=== PATIENT | female | born 1980 | race Caucasian/White ===

== ENCOUNTER 2023-07-02 07:06 | Outpatient (OUT) | payer OTHER, SELFPAY ==
[2023-07-02 07:46] LABS: Basophils Absolute Auto 0.1 10^3/uL (0.0-0.1); Basophils Percent Auto 1.2 % (0.2-2.0); Eosinophils Absolute Auto 0.4 10^3/uL (0.0-0.7); Eosinophils Percent Auto 6.7 % (0.9-7.0); Hematocrit 42.1 % (36.0-48.0); Hemoglobin 13.8 g/dL (12.0-16.0); Immature Granulocytes Abs Auto 0.01 10^3/uL (0.00-0.03); Immature Granulocytes Pct Auto 0.2 % (0.0-0.5); Lymphocytes Absolute Auto 2.9 10^3/uL (1.2-3.8); Lymphocytes Percent Auto 45.6 % (20.5-60.0); Mean Corpuscular HGB Conc 32.8 g/dL (29.9-35.2); Mean Corpuscular Hemoglobin 29.7 pg (26.7-34.0); Mean Corpuscular Volume 90.5 fL (81.0-99.0); Mean Platelet Volume 10.2 fL (9.5-13.5); Monocytes Absolute Auto 0.8 10^3/uL (0.3-0.8); Monocytes Percent Auto 11.9 % (1.7-12.0); Neutrophils Absolute Auto 2.2 10^3/uL (1.4-6.5); Neutrophils Percent Auto 34.4 % (43.0-75.0); Platelet Count 228 10^3/uL (150-450); Red Blood Count 4.65 10^6/uL (4.20-5.40); Red Cell Distribution Width 13.7 % (11.0-15.0); White Blood Count 6.4 10^3/uL (4.0-11.0)
[2023-07-02 08:23] LABS: Alanine Aminotransferase 26 U/L (14-59); Albumin Level 3.4 g/dL (3.4-5.0); Alkaline Phosphatase 49 U/L (46-116); Anion Gap 13.3; Aspartate Amino Transferase 21 U/L (15-37); BUN Creatinine Ratio 16.1; Bilirubin Total 0.5 mg/dL (0.2-1.0); Calcium 9.2 mg/dL (8.5-10.1); Carbon Dioxide 25.9 mmol/L (21.0-32.0); Chloride 104 mmol/L (98-107); Cholesterol 182 mg/dL (<=200); Estimated GFR (African America >60 (>=60); Estimated GFR (Non-African Ame >60 (>=60); Globulin 3.4 g/dL; Glucose 98 mg/dL (74-106); Potassium 4.2 mmol/L (3.5-5.1); Sodium 139 mmol/L (136-145); Total Protein 6.8 g/dL (6.4-8.2); Triglycerides 74 mg/dL (<=150); VLDL CHOLESTEROL 14.8 mg/dL
[2023-07-02 08:24] LABS: Chol HDL Ratio 3.4; HDL Cholesterol 54 mg/dL (40-60); LDL Cholesterol Calculated 113.2 mg/dL
== END 2023-07-02 07:07 | disposition home or self-care (01) ==
LOC: LAB 07:08
PROVIDERS: PCP Family Medicine; Visit Provider Family Medicine
DX: Z00.00 Encounter for general adult medical examination without abnormal findings (principal)
CPT/HCPCS: 36415; 80053; 80061; 84443; 85025

== ENCOUNTER 2024-09-08 09:26 | Outpatient (OUT) | payer OTHER, SELFPAY ==
--- OUTSIDE RECORDS SUMMARY | 2024-09-08 09:37 | XMS_ITS | CCD ---
Author Organization [facility] Care Team Providers Care [employer] Name Role Phone PATRIZIA DARLING Attending Unavailable PATIRZIA DARLING Consulting Unavailable PATRIZIA DARLING Primary Care Unavailable PATRIZIA DARLING Admitting Unavailable PATRIZIA DARLING Attending Unavailable PATRIZIA DARLING Consulting Unavailable PATRIZIA DARLING Primary Care Unavailable PATRIZIA DARLING Admitting Unavailable PATRIZIA DARLING Consulting Unavailable PATRIZIA DARLING Admitting Unavailable PATRIZIA DARLING Attending Unavailable Patrizia Darling Unavailable Heather Waterman Unavailable Patrizia Darling Primary Care Unavailable Heather Waterman Attending Unavailable Heather Waterman Admitting Unavailable Patrizia Darling MD Primary Care Provider [phone] LEROY YANG Attending Unavailable SUMAN HAJI Referring Unavailable ALIVIA BAUER Attending Unavailable Allergies Allergy Classification Reported Allergen(s) Allergy Type Date of Onset Reaction(s) Facility (2 sources) patient allergy list reviewed by nurse or physicia Propensity to adverse reactions 4 Comment:Done [employer] Other Medications Current Medications Medication Drug Class(es) Dates Sig (Normalized) Sig (Original) Multiple Vitamin (multivitamin) tablet (2 sources) take 1 tablet by vandana th once daily Multiple Vitamin (multivitamin) tablet Take 1 tablet by mouth Daily Active Problems Active Problems Problem Classification Problem Date Documented Da te Episodic/Chronic Other circulatory disease (2 sources) Elevated blood-pressure reading without diagnosis of hypertension; Translations: [Elevated blood-pressure reading, without diagnosis of hypertension] Episodic Other connective tissue disease (1 source) Pain in right foot Episodic Other connective tissue disease (3 sources) Ganglion of wrist; Translations: [Ganglion, left wrist] 07-19-2023 Episodic Other connective tissue disease (2 sources) Ganglion, left wrist; Translations: [Ganglion of joint] 07-19-2023 Episodic Other non-traumatic joint disorders (1 source) Pain in right ankle and joints of right foot Episodic Other nutritional; endocrine; and metabolic disorders (2 sources) Obese class II; Translations: [Body mass index (BMI) 39.0-39.9, adult] Chronic Other nutritional; endocrine; and metabolic disorders (2 sources) Body mass index 40+ - severely obese; Translations: [Body mass index (BMI) 40.0-44.9, adult] 07-03-2024 Chronic Other screening for suspected conditions (not mental disorders or infectious disease) (11 sources) Other specified abnormal findings of blood chemistry; Translations: [Blood chemistry abnormal] Onset: 12-16-2021 Episodic Other skin disorders (2 sources) Skin tag; Translations: [Other hypertrophic disorders of the skin] 07-19-2023 Episodic Other skin disorders (1 source) Other hypertrophic disorders of the skin; Translations: [Unspecified hypertrophic and atrophic conditions of skin] 07-19-2023 Episodic Other upper respiratory disease (2 sources) Allergic rhinitis; Translations: [Allergic rhinitis, unspecified] Onset: 04-03-2013 Chronic Residual codes; unclassified (5 sources) Family history of diabetes mellitus; Translations: [Family history of diabetes mellitus] Onset: 04-03-2013 Episodic Residual codes; unclassified (3 sources) Family history of stroke; Translations: [Family history of stroke] Episodic Sprains and strains (1 source) Sprain of unspecified ligament of right ankle, initial encounter Episodic Unclassified (1 source) Pain in right ankle and joints of right foot; Translations: [Pain in right ankle and joints of right foot] Onset: 09-14-2022 Past or Other Problems Problem Classification Problem Date Documented Da te Episodic/Chronic Other connective tissue disease (2 sources) Ganglion of joint; Translations: [Ganglion of joint] Onset: 04-03-2013 Episodic Viral infection (1 source) COVID-19 Results Test Name Value Interpretation Reference Range Facility BI MAMMOGRAM SCREENING TOMOS YNTHESIS BILATERALon 07-04-2024 BI MAMMOGRAM SCREENING TOMOSYNTHESIS BILATERAL This is a summary report. The complete report is available in the patient's medical record. If you cannot access the medical record, please contact the sending organization for a detailed fax or copy. Examination: BI MAMMOGRAM SCREENING TOMOSYNTHESIS BILATERAL Clinical History: screen Technique: Screening digital mammography study of both breasts was performed with 2-D and 3-D tomosynthesis imaging. Study was compared to the prior exam dated 07/02/2023. Findings: There is no evidence of interval dominant spiculated mass, grouped microcalcifications , or skin thickening which would be suggestive of malignancy. A few small benign-appearing asymmetric densities are noted on the left laterally, similar to the prior study. IMPRESSION: Impression: No specific evidence of malignancy seen in either breast. BIRADS 2 - Benign Findings DENSITY: The breasts are almost entirely fatty. FOLLOW-UP: Routine Screening Mammogram ELECTRONICALLY SIGNED BY: Tang Iglesias M.D. Normal Not Available Comment on above: Order Comment: U/S a nd spot compression if indicated Basophils Auto (Bld) [#/Vol] on 07-02-2023 Basophils (Bld) [#/Vol] 0.1 10 3/uL 0.0-0.1 [facility] Basophils/100 WBC Auto (Bld) on 07-02-2023 Basophils/100 WBC (Bld) 1.2 % 0.2-2.0 [facility] Cholesterol in LDL Calc [Mas s/Vol]on 07-02-2023 Cholesterol in LDL [Mass/Vol] 113.2 mg/dL [facility] Comment on above: <100 mg/dl [id number] 0-129 mg/dl NEAR OR ABOVE [id number] mg/dl BORDERLINE [id number] mg/dl HIGH>190 mg/dl VERY HIGH Cholesterol in VLDL Calc [Ma ss/Vol]on 07-02-2023 Cholesterol in VLDL [Mass/Vol] 14.8 mg/dL [facility] Eosinophils/100 WBC Auto (Bl d)on 07-02-2023 Eosinophils/100 WBC (Bld) 6.7 % 0.9-7.0 [facility] Erythrocyte distribution wid th Auto (RBC) [Ratio]on 07-02-2023 Erythrocyte distribution width (RBC) [Ratio] 13.7 % 11.0-15.0 [facility] Estimated glomerular filtrat ion rate (GFR) non- Americanon 07-02-2023 GFR/1.73 sq M.predicted among non-blacks MDRD (S/P/Bld) [Vol rate/Area] mL/min/{1.73_m2} >=60 [facility] Globulin Calc (S) [Mass/Vol] on 07-02-2023 Globulin (S) [Mass/Vol] 3.4 g/dL [facility] Hematocrit Auto (Bld) [Volum e fraction]on 07-02-2023 Hematocrit (Bld) [Volume fraction] 42.1 % 36.0-48.0 [facility] Hemoglobin [Mass/volume] in Bloodon 07-02-2023 Hemoglobin (Bld) [Mass/Vol] 13.8 g/dL 12.0-16.0 [facility] Laboratory - Chemistry and C hemistry - challengeon 07-02-2023 Albumin [Mass/Vol] 3.4 g/dL 3.4-5.0 [facility] ALP [Catalytic activity/Vol] 49 U/L 46-116 [facility] ALT [Catalytic activity/Vol] 26 U/L 14-59 [facility] AST [Catalytic activity/Vol] 21 U/L 15-37 [facility] Bilirubin [Mass/Vol] 0.5 mg/dL 0.2-1.0 [facility] Calcium [Mass/Vol] 9.2 mg/dL 8.5-10.1 [facility] Chloride [Moles/Vol] 104 mmol/L 98-107 [facility] Cholesterol [Mass/Vol] 182 mg/dL <=200 [facility] Cholesterol in HDL [Mass/Vol] 54 mg/dL 40-60 [facility] Comment on above: > or =60 mg/dl - LOW CARDIOVASCULAR RISK<40 mg/dl - HIGH CARDIOVASCULAR RISK CO2 [Moles/Vol] 25.9 mmol/L 21.0-32.0 [facility] Creatinine [Mass/Vol] 0.87 mg/dL 0.55-1.02 [facility] GFR/1.73 sq M.predicted MDRD (S/P/Bld) [Vol rate/Area] mL/min/{1.73_m2} >=60 [facility] Glucose [Mass/Vol] 98 mg/dL 74-106 [facility] Potassium [Moles/Vol] 4.2 mmol/L 3.5-5.1 [facility] Protein [Mass/Vol] 6.8 g/dL 6.4-8.2 [facility] Sodium [Moles/Vol] 139 mmol/L 136-145 [facility] Triglyceride [Mass/Vol] 74 mg/dL <=150 [facility] TSH Qn 2.360 m[IU]/L 0.358-3.740 [facility] Urea nitrogen [Mass/Vol] 14.0 mg/dL 7.0-18.0 [facility] Urea nitrogen/Creatinine [Mass ratio] 16.1 mg/mg [facility] Laboratory - Hematology and Cell countson 07-02-2023 Immature granulocytes/100 WBC (Bld) 0.2 % 0.0-0.5 [facility] Leukocytes [#/volume] correc geraldine for nucleated erythrocytes in Blood by Automated counon 07-02-2023 WBC corrected for nucl RBC Auto (Bld) [#/Vol] 6.4 10 3/uL 4.0-11.0 [facility] Lymphocytes Auto (Bld) [#/Vo l]on 07-02-2023 Lymphocytes (Bld) [#/Vol] 2.9 10 3/uL 1.2-3.8 [facility] Lymphocytes/100 WBC Auto (Bl d)on 07-02-2023 Lymphocytes/100 WBC (Bld) 45.6 % 20.5-60.0 [facility] MCH Auto (RBC) [Entitic mass ]on 07-02-2023 MCH (RBC) [Entitic mass] 29.7 pg 26.7-34.0 [facility] MCHC Auto (RBC) [Mass/Vol]on 07-02-2023 MCHC (RBC) [Mass/Vol] 32.8 g/dL 29.9-35.2 [facility] MCV Auto (RBC) [Entitic vol] on 07-02-2023 MCV (RBC) [Entitic vol] 90.5 fL 81.0-99.0 [facility] Monocytes Auto (Bld) [#/Vol] on 07-02-2023 Monocytes (Bld) [#/Vol] 0.8 10 3/uL 0.3-0.8 [facility] Monocytes/100 WBC Auto (Bld) on 07-02-2023 Monocytes/100 WBC (Bld) 11.9 % 1.7-12.0 [facility] Neutrophils Auto (Bld) [#/Vo l]on 07-02-2023 Neutrophils (Bld) [#/Vol] 2.2 10 3/uL 1.4-6.5 [facility] Neutrophils/100 WBC Auto (Bl d)on 07-02-2023 Neutrophils/100 WBC (Bld) 34.4 % 43.0-75.0 [facility] No Panel Informationon 07-01 Eosinophils # (Auto) 0.4 10 3/uL 0.0-0.7 [facility] Immature Granulocyte # (Auto) 0.01 10 3/uL 0.00-0.03 [facility] Platelet mean volume Auto (B ld) [Entitic vol]on 07-02-2023 Platelet mean volume (Bld) [Entitic vol] 10.2 fL 9.5-13.5 [facility] Platelets Auto (Bld) [#/Vol] on 07-02-2023 Platelets (Bld) [#/Vol] 228 10 3/uL 150-450 [facility] RBC Auto (Bld) [#/Vol]on RBC (Bld) [#/Vol] 4.65 10 6/uL 4.20-5.40 [facility] Serum or plasma albumin/glob ulin mass ratioon 07-02-2023 Albumin/Globulin [Mass ratio] 1.0 {ratio} [facility] Serum or plasma anion gap de terminationon 07-02-2023 Anion gap [Moles/Vol] 13.3 mmol/L [facility] Serum or plasma total choles terol/high density lipoprotein (HDL) cholesterol mass anushka 07-02-2023 Cholesterol.total/Ch olesterol in HDL [Mass ratio] 3.4 {ratio} [facility] Comment on above: 3.3 - 4.4 LOW RISK4. 4 - 7.1 AVERAGE RISK7.1 - 11.0 MODERATE RISK>11.0 HIGH RISK XR ankle RT min 3V*on 2022 XR ankle RT min 3V* [facility] [employer] Other XR ankle RT min 3V* [facility] Main [facility] [employer] Other XR ankle RT min 3V* [address] [place] [address] [employer] Other XR ankle RT min 3V* [place] [address] [employer] Other XR ankle RT min 3V* XRay Report Nort [facility] Other XR ankle RT min 3V* Signed [employer] Other XR ankle RT min 3V* Patient: Sheila Mckeon MR#: [id number] [employer] Other XR ankle RT min 3V* 7736 [employer] Other XR ankle RT min 3V* : 1980 Acct:[id number] [employer] Other XR ankle RT min 3V* Age/Sex: 42 / F ADM Date: 09/14/22 [employer] Other XR ankle RT min 3V* Loc: XDUCLY Room: Type: REG CLI [employer] Other XR ankle RT min 3V* Attending Dr: Heather Waterman [facility] [employer] Other XR ankle RT min 3V* Copies to: Heather Waterman [facility] [employer] Other XR ankle RT min 3V* Ordering Provider: Heather Waterman APRN [employer] Other XR ankle RT min 3V* Date of Service: 09/14/22 [employer] Other XR ankle RT min 3V* XR/XR foot RT min 3V*: Acute right ankle pain [employer] Other XR ankle RT min 3V* ([id number]) XR/XR ankle RT min 3V*: Acute right ankle pain [employer] Other XR ankle RT min 3V* 3 views right foot plain film [employer] Other XR ankle RT min 3V* COMPARISON:None [employer] Other XR ankle RT min 3V* HISTORY: Right foot and ankle injury 3 days ago. Continued pain [employer] Other XR ankle RT min 3V* ACUTE FINDINGS: None [employer] Other XR ankle RT min 3V* DEGENERATIVE CHANGE: Unremarkable [employer] Other XR ankle RT min 3V* SOFT TISSUE FINDINGS: Unremarkable [employer] Other XR ankle RT min 3V* JOINT EFFUSION: None [employer] Other XR ankle RT min 3V* POSTOP CHANGES: None [employer] Other XR ankle RT min 3V* BONE MINERALIZATION: Adequate [employer] Other XR ankle RT min 3V* XR/XR foot RT min 3V* [employer] Other XR ankle RT min 3V* IMPRESSION: No acute findings. [employer] Other XR ankle RT min 3V* 3 views right ankle [employer] Other XR ankle RT min 3V* Lateral soft tissue swelling. No fracture. Adequate bony alignment. [employer] Other XR ankle RT min 3V* IMPRESSION: No acute fracture. [employer] Other XR ankle RT min 3V* Impression dictated by: Vern Zavala M.D.09/14/2022 10:06 AM [employer] Other XR ankle RT min 3V* Dictation Location: [facility]--12 [employer] Other XR ankle RT min 3V* Transcribed By: COURTNEY 09/14/22 1006 [employer] Other XR ankle RT min 3V* Dictated By: Vern Zavala DO 09/14/22 1004 [employer] Other XR ankle RT min 3V* Signed By: [employer] Other XR ankle RT min 3V* 09/14/22 1006 No rt [employer] Other XR ankle RT min 3V* [facility] Main [place] [address] [place] [address] XRay Report Signed Patient: Sheila Mckeon MR#: [id number] : 1980 Acct:[id number] Age/Sex: 42 / F ADM Date: 09/14/22 Loc: XDUCLY Room: Type: [facility] Attending Dr: Heather Waterman APRN Copies to: Heather Waterman APRN Ordering Provider: Heather Waterman APRN Date of Service: 09/14/22 XR/XR foot RT min 3V*: Acute right ankle pain ([id number]) XR/XR ankle RT min 3V*: Acute right ankle pain 3 views right foot plain film COMPARISON:None HISTORY: Right foot and ankle injury 3 days ago. Continued pain ACUTE FINDINGS: None DEGENERATIVE CHANGE: Unremarkable SOFT TISSUE FINDINGS: Unremarkable JOINT EFFUSION: None POSTOP CHANGES: None BONE MINERALIZATION: Adequate XR/XR foot RT min 3V* IMPRESSION: No acute findings. 3 views right ankle Lateral soft tissue swelling. No fracture. Adequate bony alignment. IMPRESSION: No acute fracture. Impression dictated by: Vern Zavala M.D.09/14/2022 10:06 AM Dictation [facility] Transcribed By: COURTNEY 09/14/22 100 Dictated By: Vern Zavala DO 09/14/22 1004 Signed By: 09/14/22 1006 [facility] CBC AUTO DIFFon 06-13-2022 BASO # 0.1 103/ul Normal 0.0-0.1 [facility] Comment on above: Performed By: #### C BC #### [facility] [address] [place] [address] Dr. Tessie Yu Basophils/100 WBC (Bld) 1.0 % Normal 0.2-2.0 [facility] Comment on above: Performed By: #### C BC #### [facility] [address] [place] [address] Dr. Tessie Yu EO # 0.4 103/ul Normal 0.0-0.7 [facility] Comment on above: Performed By: #### C BC #### [facility] [address] [place] [address] Dr. Tessie Yu Eosinophils/100 WBC (Bld) 6.2 % Normal 0.9-7.0 [facility] Comment on above: Performed By: #### C BC #### [facility] [address] [place] [address] Dr. Tessie Yu Erythrocyte distribution width (RBC) [Ratio] 13.3 % Normal 11.0-15.0 [facility] Comment on above: Performed By: #### C BC #### [facility] [address] [place] [address] Dr. Tessie Yu Hematocrit (Bld) [Volume fraction] 43.8 % Normal 36.0-48.0 [facility] Comment on above: Performed By: #### C BC #### [facility] [address] [place] [address] Dr. Tessie Yu Hemoglobin (Bld) [Mass/Vol] 14.2 g/dL Normal 12.0-16.0 [facility] Comment on above: Performed By: #### C BC #### [facility] [address] [place] [address] Dr. Tessie Yu IG # 0.02 10e3/ul Normal 0.00-0.03 [facility] Comment on above: Performed By: #### C BC #### [facility] [address] [place] [address] Dr. Tessie Yu IG % 0.3 % Normal 0.0-0.5 [facility] Comment on above: Performed By: #### C BC #### [facility] [address] [place] [address] Dr. Tessie Yu LYMPH # 2.5 103/ul Normal 1.2-3.8 [facility] Comment on above: Performed By: #### C BC #### [facility] [address] [place] [address] Dr. Tessie Yu Lymphocytes/100 WBC (Bld) 39.6 % Normal 20.5-60.0 [facility] Comment on above: Performed By: #### C BC #### [facility] [address] [place] [address] Dr. Tessie Yu MANUAL DIFF REQ NO Normal [facility] Comment on above: Performed By: #### C BC #### [facility] [address] [place] [address] Dr. Tessie Yu MCH (RBC) [Entitic mass] 30.1 pg Normal 26.7-34.0 [facility] Comment on above: Performed By: #### C BC #### [facility] [address] [place] [address] Dr. Tessie Yu MCHC (RBC) [Mass/Vol] 32.4 g/dL Normal 29.9-35.2 [facility] Comment on above: Performed By: #### C BC #### [facility] [address] [place] [address] Dr. Tessie Yu MCV (RBC) [Entitic vol] 92.8 fL Normal 81.0-99.0 [facility] Comment on above: Performed By: #### C BC #### [facility] [address] [place] [address] Dr. Tessie Yu MONO # 0.7 103/ul Normal 0.3-0.8 [facility] Comment on above: Performed By: #### C BC #### [facility] [address] [address] [address] Tessie Yu Monocytes/100 WBC (Bld) 10.5 % Normal 1.7-12.0 [facility] Comment on above: Performed By: #### C BC #### [facility] [address] [address] [address] Tessie Yu NEUT # 2.7 103/ul Normal 1.4-6.5 [facility] Comment on above: Performed By: #### C BC #### [facility] [address] [address] [address] Tessie Yu Neutrophils/100 WBC (Bld) 42.4 % Critically low 43.0-75.0 [facility] Comment on above: Performed By: #### C BC #### [facility] [address] [place] [address] Dr. Tessie Yu Platelet mean volume (Bld) [Entitic vol] 10.8 fL Normal 9.5-13.5 [facility] Comment on above: Performed By: #### C BC #### [facility] [address] [place] [address] Dr. Tessie Yu PLT 247 103/ul Normal 150-450 [facility] Comment on above: Performed By: #### C BC #### [facility] [address] [place] [address] Dr. Tessie Yu RBC 4.72 106/ul Normal 4.20-5.40 [facility] Comment on above: Performed By: #### C BC #### [facility] [address] [place] [address] Dr. Tessie Yu WBC 6.3 103/ul Normal 4.0-11.0 [facility] Comment on above: Performed By: #### C BC #### [facility] [address] [place] [address] Dr. Tessie Yu LIPID PROFILEon 06-13-2022 CHOL-HDL RATIO NORM SEE BELOW Normal [facility] Comment on above: Result Comment: 3.3 - 4.4 LOW RISK 4.4 - 7.1 AVERAGE RISK 7.1 - 11.0 MODERATE RISK >11.0 HIGH RISK Performed By: #### C MP, TSH, LIPID #### [facility] [address] [address] [address] Tessie Yu Cholesterol [Mass/Vol] 158 mg/dL Normal <=200 [facility] Comment on above: Performed By: #### C MP, TSH, LIPID #### [facility] [address] [address] [address] Tessie Yu Cholesterol in HDL [Mass/Vol] 47 mg/dL Normal 40-60 [facility] Comment on above: Performed By: #### C MP, TSH, LIPID #### [facility] [address] [place] [address] Dr. Tessie Yu Cholesterol in LDL [Mass/Vol] 99.6 mg/dL Normal [facility] Comment on above: Performed By: #### C MP, TSH, LIPID #### [facility] [address] [place] [address] Dr. Tessie Yu Cholesterol.total/Ch olesterol in HDL [Mass ratio] 3.4 {ratio} Normal [facility] Comment on above: Performed By: #### C MP, TSH, LIPID #### [facility] [address] [place] [address] Dr. Tessie Yu HDL NORMAL > or = 60 mg/dl - LOW CARDIOVASCULAR RISK <40 mg/dl - HIGH CARDIOVASCULAR RISK Normal [facility] Comment on above: Performed By: #### C MP, TSH, LIPID #### [facility] [address] [place] [address] Dr. Tessie Yu LDL CALC NORMAL SEE BELOW Normal [facility] Comment on above: Result Comment: <100 mg/dl OPTIMAL 100 - 129 mg/dl NEAR OR ABOVE OPTIMAL 130 - 159 mg/dl BORDERLINE HIGH 160 - 189 mg/dl HIGH >190 mg/dl VERY HIGH Performed By: #### C MP, TSH, LIPID #### [facility] [address] [place] [address] Dr. Tessie Yu Triglyceride [Mass/Vol] 57 mg/dL Normal <=150 [facility] Comment on above: Performed By: #### C MP, TSH, LIPID #### [facility] [address] [address] [address] Tessie Yu VLDL CALC 11.4 mg/dL Normal [facility] Comment on above: Performed By: #### C MP, TSH, LIPID #### [facility] [address] [address] [address] Tessie Yu PROF 14(COMP METB)on 023 Albumin [Mass/Vol] 3.8 g/dL Normal 3.4-5.0 [facility] Comment on above: Performed By: #### C MP, TSH, LIPID #### [facility] [address] [place] [address] Dr. Tessie Yu Albumin/Globulin [Mass ratio] 1.1 {ratio} Normal [facility] Comment on above: Performed By: #### C MP, TSH, LIPID #### [facility] [address] [place] [address] Dr. Tessie Yu ALP [Catalytic activity/Vol] 47 U/L Normal 46-116 [facility] Comment on above: Performed By: #### C MP, TSH, LIPID #### [facility] [address] [place] [address] Dr. Tessie Yu ALT [Catalytic activity/Vol] 28 U/L Normal 14-59 [facility] Comment on above: Performed By: #### C MP, TSH, LIPID #### [facility] [address] [address] [address] Tessie Yu Anion gap [Moles/Vol] 12.2 mmol/L Normal [facility] Comment on above: Performed By: #### C MP, TSH, LIPID #### [facility] [address] [place] [address] Dr. Tessie Yu AST [Catalytic activity/Vol] 22 U/L Normal 15-37 [facility] Comment on above: Performed By: #### C MP, TSH, LIPID #### [facility] [address] [address] [address] Tessie Yu Bilirubin [Mass/Vol] 0.3 mg/dL Normal 0.2-1.0 [facility] Comment on above: Performed By: #### C MP, TSH, LIPID #### [facility] [address] [place] [address] Dr. Tessie Yu Calcium [Mass/Vol] 9.0 mg/dL Normal 8.5-10.1 [facility] Comment on above: Performed By: #### C MP, TSH, LIPID #### [facility] [address] [place] [address] Dr. Tessie Yu Chloride [Moles/Vol] 106 mmol/L Normal 98-107 [facility] Comment on above: Performed By: #### C MP, TSH, LIPID #### [facility] [address] [place] [address] Dr. Tessie Yu CO2 [Moles/Vol] 26.3 mmol/L Normal 21.0-32.0 [facility] Comment on above: Performed By: #### C MP, TSH, LIPID #### [facility] [address] [place] [address] Dr. Tessie Yu Creatinine [Mass/Vol] 0.97 mg/dL Normal 0.55-1.02 [facility] Comment on above: Performed By: #### C MP, TSH, LIPID #### [facility] [address] [place] [address] Dr. Tessie Yu EGFR-AF MACEDONIAN >60 Normal >=60 [facility] Comment on above: Performed By: #### C MP, TSH, LIPID #### [facility] [address] [place] [address] Dr. Tessie Yu EGFR-NON AF MACEDONIAN >60 Normal >=60 [facility] Comment on above: Performed By: #### C MP, TSH, LIPID #### [facility] [address] [place] [address] Dr. Tessie Yu Globulin (S) [Mass/Vol] 3.5 g/dL [facility] Comment on above: Performed By: #### C MP, TSH, LIPID #### [facility] [address] [place] [address] Dr. Tessie Yu Glucose [Mass/Vol] 96 mg/dL Normal 74-106 [facility] Comment on above: Performed By: #### C MP, TSH, LIPID #### [facility] [address] [place] [address] Dr. Tessie Yu Potassium [Moles/Vol] 4.5 mmol/L Normal 3.5-5.1 [facility] Comment on above: Performed By: #### C MP, TSH, LIPID #### [facility] [address] [place] [address] Dr. Tessie Yu Protein [Mass/Vol] 7.3 g/dL Normal 6.4-8.2 [facility] Comment on above: Performed By: #### C MP, TSH, LIPID #### [facility] [address] [place] [address] Dr. Tessie Yu Sodium [Moles/Vol] 140 mmol/L Normal 136-145 [facility] Comment on above: Performed By: #### C MP, TSH, LIPID #### [facility] [address] [place] [address] Dr. Tessie Yu Urea nitrogen [Mass/Vol] 16.0 mg/dL Normal 7.0-18.0 [facility] Comment on above: Performed By: #### C MP, TSH, LIPID #### [facility] [address] [place] [address] Dr. Tessie Yu Urea nitrogen/Creatinine [Mass ratio] 16.5 mg/mg [facility] Comment on above: Performed By: #### C MP, TSH, LIPID #### [facility] [address] [place] [address] Dr. Tessie Yu TSHon 06-13-2022 TSH 3.751 uIU/mL Critically high 0.358-3.740 [facility] Comment on above: Performed By: #### C MP, TSH, LIPID #### [facility] [address] [place] [address] Dr. Tessie Yu FREE T4on 12-16-2021 Free T4 [Mass/Vol] 0.92 ng/dL Normal 0.76-1.46 [facility] Comment on above: Performed By: #### F T4 #### [facility] [address] [place] [address] Dr. Tessie Yu TSHon 12-16-2021 TSH 2.889 uIU/mL Normal 0.358-3.740 [facility] Comment on above: Performed By: #### T SH #### [facility] [address] [place] [address] Dr. Tessie Yu [facility] CBC AUTO DIFFon 10-02-2021 BASO # 0.1 103/ul Normal 0.0-0.1 [facility] Comment on above: Performed By: #### H FPFCBC #### [facility] [address] [place] [address] Dr. Tessie Yu Basophils/100 WBC (Bld) 1.0 % Normal 0.2-2.0 [facility] Comment on above: Performed By: #### H FPFCBC #### [facility] [address] [place] [address] Dr. Tessie Yu EO # 0.4 103/ul Normal 0.0-0.7 [facility] Comment on above: Performed By: #### H FPFCBC #### [facility] [address] [place] [address] Dr. Tessie Yu Eosinophils/100 WBC (Bld) 5.9 % Normal 0.9-7.0 [facility] Comment on above: Performed By: #### H FPFCBC #### [facility] [address] [place] [address] Dr. Tessie Yu Erythrocyte distribution width (RBC) [Ratio] 13.5 % Normal 11.0-15.0 [facility] Comment on above: Performed By: #### H FPFCBC #### [facility] [address] [place] [address] Dr. Tessie Yu Hematocrit (Bld) [Volume fraction] 44.5 % Normal 36.0-48.0 [facility] Comment on above: Performed By: #### H FPFCBC #### [facility] [address] [place] [address] Dr. Tessie Yu Hemoglobin (Bld) [Mass/Vol] 14.5 g/dL Normal 12.0-16.0 [facility] Comment on above: Performed By: #### H FPFCBC #### [facility] [address] [place] [address] Dr. Tessie Yu IG # 0.02 10e3/ul Normal 0.00-0.03 [facility] Comment on above: Performed By: #### H FPFCBC #### [facility] [address] [place] [address] Dr. Tessie Yu IG % 0.3 % Normal 0.0-0.5 [facility] Comment on above: Performed By: #### H FPFCBC #### [facility] [address] [place] [address] Dr. Tessie Yu LYMPH # 2.4 103/ul Normal 1.2-3.8 [facility] Comment on above: Performed By: #### H FPFCBC #### [facility] [address] [place] [address] Dr. Tessie Yu Lymphocytes/100 WBC (Bld) 40.0 % Normal 20.5-60.0 [facility] Comment on above: Performed By: #### H FPFCBC #### [facility] [address] [place] [address] Dr. Tessie Yu MCH (RBC) [Entitic mass] 29.7 pg Normal 26.7-34.0 [facility] Comment on above: Performed By: #### H FPFCBC #### [facility] [address] [place] [address] Dr. Tessie Yu MCHC (RBC) [Mass/Vol] 32.6 g/dL Normal 29.9-35.2 [facility] Comment on above: Performed By: #### H FPFCBC #### [facility] [address] [place] [address] Dr. Tessie Yu MCV (RBC) [Entitic vol] 91.2 fL Normal 81.0-99.0 [facility] Comment on above: Performed By: #### H FPFCBC #### [facility] [address] [address] [address] Tessie Yu MONO # 0.7 103/ul Normal 0.3-0.8 [facility] Comment on above: Performed By: #### H FPFCBC #### [facility] [address] [place] [address] Dr. Tessie Yu Monocytes/100 WBC (Bld) 11.5 % Normal 1.7-12.0 [facility] Comment on above: Performed By: #### H FPFCBC #### [facility] [address] [place] [address] Dr. Tessie Yu NEUT # 2.5 103/ul Normal 1.4-6.5 [facility] Comment on above: Performed By: #### H FPFCBC #### [facility] [address] [place] [address] Dr. Tessie Yu Neutrophils/100 WBC (Bld) 41.3 % Critically low 43.0-75.0 [facility] Comment on above: Performed By: #### H FPFCBC #### [facility] [address] [place] [address] Dr. Tessie Yu Platelet mean volume (Bld) [Entitic vol] 11.0 fL Normal 9.5-13.5 [facility] Comment on above: Performed By: #### H FPFCBC #### [facility] [address] [place] [address] Dr. Tessie Yu PLT 263 103/ul Normal 150-450 [facility] Comment on above: Performed By: #### H FPFCBC #### [facility] [address] [place] [address] Dr. Tessie Yu RBC 4.88 106/ul Normal 4.20-5.40 [facility] Comment on above: Performed By: #### H FPFCBC #### [facility] [address] [place] [address] Dr. Tessie Yu WBC 6.1 103/ul Normal 4.0-11.0 [facility] Comment on above: Performed By: #### H FPFCBC #### [facility] [address] [place] [address] Dr. Tessie Yu [employer] PROFILEon 022 Albumin [Mass/Vol] 4.1 g/dL Normal 3.4-5.0 [facility] Comment on above: Performed By: #### H FPF #### [facility] [address] [place] [address] Dr. Tessie Yu Albumin/Globulin [Mass ratio] 1.2 {ratio} [facility] Comment on above: Performed By: #### H FPF #### [facility] [address] [place] [address] Dr. Tessie Yu ALP [Catalytic activity/Vol] 47 U/L Normal 46-116 [facility] Comment on above: Performed By: #### H FPF #### [facility] [address] [place] [address] Dr. Tessie Yu ALT [Catalytic activity/Vol] 29 U/L Normal 14-59 [facility] Comment on above: Performed By: #### H FPF #### [facility] [address] [place] [address] Dr. Tessie Yu AST [Catalytic activity/Vol] 24 U/L Normal 15-37 [facility] Comment on above: Performed By: #### H FPF #### [facility] [address] [place] [address] Dr. Tessie Yu Bilirubin [Mass/Vol] 0.8 mg/dL Normal 0.2-1.0 [facility] Comment on above: Performed By: #### H FPF #### [facility] [address] [place] [address] Dr. Tessie Yu Calcium [Mass/Vol] 9.0 mg/dL Normal 8.5-10.1 [facility] Comment on above: Performed By: #### H FPF #### [facility] [address] [place] [address] Dr. Tessie Yu Chloride [Moles/Vol] 102 mmol/L Normal 98-107 [facility] Comment on above: Performed By: #### H FPF #### [facility] [address] [address] [address] Tessie Yu CHOL-HDL RATIO NORM SEE BELOW Normal [facility] Comment on above: Result Comment: 3.3 - 4.4 LOW RISK 4.4 - 7.1 AVERAGE RISK 7.1 - 11.0 MODERATE RISK >11.0 HIGH RISK Performed By: #### H FPF #### [facility] [address] [address] [address] Tessie Yu Cholesterol [Mass/Vol] 192 mg/dL Normal <=200 [facility] Comment on above: Performed By: #### H FPF #### [facility] [address] [address] [address] Tessie Yu Cholesterol in HDL [Mass/Vol] 47 mg/dL Normal 40-60 [facility] Comment on above: Performed By: #### H FPF #### [facility] [address] [address] [address] Tessie Yu Cholesterol in LDL [Mass/Vol] 127.6 mg/dL [facility] Comment on above: Performed By: #### H FPF #### [facility] [address] [address] [address] Tessie Yu Cholesterol.total/Ch olesterol in HDL [Mass ratio] 4.1 {ratio} [facility] Comment on above: Performed By: #### H FPF #### [facility] [address] [address] [address] Tessie Yu CO2 [Moles/Vol] 23.5 mmol/L Normal 21.0-32.0 [facility] Comment on above: Performed By: #### H FPF #### [facility] [address] [address] [address] Tessie Yu Creatinine [Mass/Vol] 0.86 mg/dL Normal 0.55-1.02 [facility] Comment on above: Performed By: #### H FPF #### [facility] [address] [address] [address] Tessie Yu Globulin (S) [Mass/Vol] 3.3 g/dL [facility] Comment on above: Performed By: #### H FPF #### [facility] [address] [address] [address] Tesise Yu Glucose [Mass/Vol] 79 mg/dL Normal 74-106 [facility] Comment on above: Performed By: #### H FPF #### [facility] [address] [address] [address] Tessie Yu HDL NORMAL > or = 60 mg/dl - LOW CARDIOVASCULAR RISK <40 mg/dl - HIGH CARDIOVASCULAR RISK [facility] Comment on above: Performed By: #### H FPF #### [facility] [address] [address] [address] Tessie Yu LDL CALC NORMAL SEE BELOW Normal [facility] Comment on above: Result Comment: <100 mg/dl OPTIMAL 100 - 129 mg/dl NEAR OR ABOVE OPTIMAL 130 - 159 mg/dl BORDERLINE HIGH 160 - 189 mg/dl HIGH >190 mg/dl VERY HIGH Performed By: #### H FPF #### [facility] [address] [address] [address] Tessie Yu Potassium [Moles/Vol] 4.2 mmol/L Normal 3.5-5.1 [facility] Comment on above: Performed By: #### H FPF #### [facility] [address] [place] [address] Dr. Tessie Yu Protein [Mass/Vol] 7.4 g/dL Normal 6.4-8.2 [facility] Comment on above: Performed By: #### H FPF #### [facility] [address] [place] [address] Dr. Tessie Yu Sodium [Moles/Vol] 137 mmol/L Normal 136-145 [facility] Comment on above: Performed By: #### H FPF #### [facility] [address] [address] [address] Tessie Yu Triglyceride [Mass/Vol] 87 mg/dL Normal <=150 [facility] Comment on above: Performed By: #### H FPF #### [facility] [address] [place] [address] Dr. Tessie Yu TSH 4.033 uIU/mL Critically high 0.358-3.740 [facility] Comment on above: Performed By: #### H FPF #### [facility] [address] [address] [address] Tessie Yu Urea nitrogen [Mass/Vol] 10.0 mg/dL Normal 7.0-18.0 [facility] Comment on above: Performed By: #### H FPF #### [facility] [address] [address] [address] Tessie Yu Urea nitrogen/Creatinine [Mass ratio] 11.6 mg/mg [facility] Comment on above: Performed By: #### H FPF #### [facility] [address] [address] [address] Tessie Yu VLDL CALC 17.4 mg/dL [facility] Comment on above: Performed By: #### H FPF #### [facility] [address] [place] [address] Dr. Tessie Yu Vital Signs Date Time Vital Sign Value Performing Clinician Facility 07-03-2024 14:29-0400 Body height 160 cm Leroy Visci DO Work Phone: [facility] 07-03-2024 14:29-0400 Body mass index (BMI) [Ratio] 41.81 kg/m2 Leroy Visci DO Work Phone: [facility] 07-03-2024 14:29-0400 Body weight 107.05 kg Leroy Visci DO Work Phone: [facility] 07-03-2024 14:29-0400 Diastolic blood pressure 84 mm[Hg] Leroy Visci DO Work Phone: [facility] 07-03-2024 14:29-0400 Systolic blood pressure 122 mm[Hg] Leroy Visci DO Work Phone: [facility] 04-28-2024 09:00-0400 Body height 160.02 cm [facility] 04-28-2024 09:00-0400 Body mass index (BMI) [Ratio] 40.1 kg/m2 [facility] 04-28-2024 09:00-0400 Body weight 102.96 kg [facility] 04-28-2024 09:00-0400 Diastolic blood pressure 81 mm[Hg] [facility] 04-28-2024 09:00-0400 Heart rate 81 /min [facility] 04-28-2024 09:00-0400 Systolic blood pressure 126 mm[Hg] [facility] 07-26-2023 09:43-0400 Body height 160.02 cm [facility] 07-26-2023 09:43-0400 Body mass index (BMI) [Ratio] 40.7 kg/m2 [facility] 07-26-2023 09:43-0400 Body weight 104.32 kg [facility] 07-26-2023 09:43-0400 Diastolic blood pressure 84 mm[Hg] [facility] 07-26-2023 09:43-0400 Heart rate 91 /min [facility] 07-26-2023 09:43-0400 Systolic blood pressure 125 mm[Hg] [facility] 07-19-2023 08:54-0400 Body height 160.02 cm [facility] 07-19-2023 08:54-0400 Body mass index (BMI) [Ratio] 40.7 kg/m2 [facility] 07-19-2023 08:54-0400 Body weight 104.32 kg [facility] 07-19-2023 08:54-0400 Diastolic blood pressure 76 mm[Hg] [facility] 07-19-2023 08:54-0400 Heart rate 85 /min [facility] 07-19-2023 08:54-0400 Systolic blood pressure 110 mm[Hg] [facility] 09-14-2022 09:20-0400 Body height 160.02 cm Heather Waterman Other [facility] 09-14-2022 09:20-0400 Body mass index (BMI) [Ratio] 38.97 kg/m2 Heather Waterman Other [facility] Other 09-14-2022 09:20-0400 Body temperature 97.8 [degF] Heather Waterman Other [facility] Other 09-14-2022 09:20-0400 Body weight 99.79 kg Heather Waterman Other [facility] Other 09-14-2022 09:20-0400 Respiratory rate 18 /min Heather Waterman Other [facility] Other 09-14-2022 09:20-0400 SaO2% (BldA) [Mass fraction] 99 % Heather Cullenley Other [facility] Other 06-23-2022 16:30-0400 Body height 160.02 cm Patrizia Darling Other [facility] Other 06-23-2022 16:30-0400 Body mass index (BMI) [Ratio] 38.26 kg/m2 Patrizia Darling Other [facility] Other 06-23-2022 16:30-0400 Body weight 97.98 kg Patrizia Darling Other [facility] Other 06-23-2022 16:30-0400 Diastolic blood pressure 80 mm[Hg] Patrizia Darling Other [facility] Other 06-23-2022 16:30-0400 SaO2% (BldA) [Mass fraction] 98 % Patrizia Darling Other [facility] Other 06-23-2022 16:30-0400 Systolic blood pressure 128 mm[Hg] Patrizia Darling Other [facility] Other Encounters Encounter Date Encounter Type Care Provider Facility Start: 07-04-2024 End: 07-04-2024 ambulatory SUMAN Mary HAJI Not Available Start: 07-03-2024 End: 07-03-2024 Patient encounter status Leroy Yang DO Work Phone: [facility] Start: 07-03-2024 End: 07-03-2024 Periodic preventive med est patient 40-64yrs Leroy Yang DO Work Phone: [facility] Comment on above: Encounter for gyneco logical examination with abnormal finding (Primary Dx); Encounter for screening mammogram for malignant neoplasm of breast; BMI 40.0-44.9, adult ([facility]) Start: 07-03-2024 End: 07-03-2024 ambulatory LEROY YANG Not Available Start: 04-28-2024 End: 04-28-2024 ambulatory [facility] Work Phone: Start: 04-28-2024 End: 04-28-2024 Patient encounter procedure Replaced By [facility] Work Phone: Start: 07-26-2023 End: 07-26-2023 ambulatory [facility] Work Phone: Start: 07-26-2023 End: 07-26-2023 Patient encounter procedure Replaced By [facility] Physician [facility] Work Phone: Start: 07-21-2023 End: 07-21-2023 ambulatory ALIVIA Henderson APLING Not Available Start: 07-19-2023 End: 07-19-2023 ambulatory [facility] Work Phone: Start: 07-19-2023 End: 07-19-2023 Encounter for general adult medical examination without abnormal findings [facility] Start: 07-19-2023 End: 07-19-2023 Patient encounter procedure Replaced By [facility] Physician [facility] Work Phone: Start: 07-02-2023 Non-patient / Non-visit Replaced By [facility] Physician [facility] Work Phone: Start: 06-11-2023 Patient encounter status [facility] Start: 11-10-2022 (Televisit) Televisit Patrizia Darling [facility] Start: 11-10-2022 End: 11-10-2022 ambulatory Patrizia Darling Other [facility] Other Start: 09-14-2022 Office outpatient vi sit 15 minutes Heather Waterman [facility] Start: 09-14-2022 End: 09-14-2022 ambulatory Patrizia Darling [facility] Other Start: 06-23-2022 End: 06-23-2022 ambulatory Patrizia Darling Other [facility] Other Start: 06-23-2022 Encounter for genera l adult medical examination without abnormal findings Patrizia Darling [facility] Start: 06-23-2022 Periodic preventive med est patient 40-64yrs Patrizia Darling [facility] Start: 06-18-2022 Encounter for genera l adult medical examination without abnormal findings [facility] Start: 06-13-2022 End: 06-14-2022 ambulatory PATRIZIA DARLING Facility:[facility] Start: 06-13-2022 End: 06-14-2022 Encounter for general adult medical examination without abnormal findings PATRIZIA DARLING Facility:[facility] Start: 12-16-2021 End: 12-17-2021 ambulatory PATRIZIA DARLING Facility:[facility] Start: 10-02-2021 End: 10-03-2021 ambulatory PATRIZIA DARLING Facility:[facility] Start: 05-14-2021 Adult health examination Dayan Waterman Other [facility] Other Procedures Date Procedure Procedure Detail Performing Clinician Start: 07-02-2023 Mammography Leroy Vi sci DO Work Phone: Start: 06-01-2022 Microscopic observat ion [Identifier] in Cervix by Cyto stain Leroy Yang DO Work Phone: Plan of Treatment Date Care Activity Detail Author Start: 07-18-2025 End: 07-18-2025 Patient encounter procedure 07/18/2025 10:45 AM EDT Office Visit [facility] [address] [place] [address] Leroy Yang DO [address] [place] [address] [facility] Start: 06-01-2025 Screening for malign ant neoplasm of cervix [facility] Start: 10-16-2024 Influenza vaccination Influenz a Vaccine (Season Ended) [facility] Start: 07-04-2024 End: 07-04-2024 Professional / ancillary services management 07/04/2024 3:15 PM EDT Ancillary Procedure [facility] [address] [place] [address] [facility] Start: 07-03-2024 End: 09-02-2025 DBT Breast - bilateral screening Bilateral screening mammogram with tomosynthesis Imaging Routine Encounter for screening mammogram for malignant neoplasm of breast Expected: 07/03/2024, Expires: 09/02/2025 [facility] Work Phone: Comment on above: Expected: 07/03/2024 , Expires: 09/02/2025 Start: 07-01-2024 Screening for malign ant neoplasm of breast Mammogram [facility] Start: 07-19-2023 Patient referral [facility] Work Phone: Start: 02-12-2010 Screening for malign ant neoplasm of cervix HPV/Cotest [facility] Patient referral [facility] Work Phone: Immunizations Immunization Date Immunization Notes Care Provider Fa cility 11-09-2022 influenza virus vaccine, unspecified formulation Leroy Yang DO Work Phone: [facility] 11-12-2021 influenza virus vaccine, split virus (incl. purified surface antigen) Heather Waterman Other [facility] Other 11-12-2021 influenza virus vaccine, unspecified formulation [facility] Payers Date Payer Category Payer Self-pay 2022 Unknown [id number] 2022 Private Health Insurance [employer] [id number] 1980 Unknown [id number] 1980 Unknown [id number] 1980 Unknown [id number] 1980 Unknown [id number] 1980 Unknown [id number] 1959 Self-pay [id number] 1959 Unknown [id number] Unknown [id number] Unknown [id number] Social History Date Type Detail Facility Unknown if ever smoked [facility] Other Start: 07-02-2023 End: 07-03-2024 Sex Assigned At [facility] Other Start: 1980 Sex Assigned At Female [facility] Tobacco smoking stat [facility] Unknown if ever smoked [facility] Work Phone: Start: 04-28-2024 Sex Female (finding) [facility] Start: 07-02-2023 Tobacco smoking status NHIS Never smoked tobacco [facility] Start: 07-02-2023 Tobacco use and exposure Smokeless tobacco non-user [facility] Start: 07-03-2024 Alcoholic beverage intake Current drinker of alcohol (finding) [facility] Start: 07-02-2023 End: 07-03-2024 Alcoholic beverage intake [facility] How often to you hav e a drink containing alcohol? Monthly or less [facility] How many standard drinks containing alcohol do you have on a typical day? 1 or 2 [facility] How often do you hav e 6 or more drinks on 1 occasion? Never [facility] Start: 07-21-2023 Alcohol Comment once per week 4-5 drinks [facility] Start: 06-08-2023 Gender identity Identifies as female gender (finding) [facility] Start: 06-08-2023 Sexual orientation Heterosexual (finding) [facility] Clinical Notes 06-23-2022 to 07-03-2024 Leroy Yang, DO - 07/03/2024 2:00 PM EDT Note Date & Type Note Facility 07-03-2024 History of Presen t illness Narrative Images from the original note were not included. Leroy Yang, Obstetrics and Gynecology Sheila Betheatista 1980 07/03/24 [id number] Yearly Wellness Exam Chief Complaint Patient presents with Gynecologic Exam Pt presents for yearly. 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 Visit Vitals BP 122/84 Ht 5' 3 Wt 236 lb LMP 06/20/2024 (Exact Date) BMI 41.81 kg/m OB Status Having periods Smoking Status Never BSA 2.18 m History of Present Illness Current Outpatient Medications Medication Sig Dispense Refill Multiple Vitamin (multivitamin) tablet Take 1 tablet by mouth Daily No current facility-administered medications for this visit. No Known Allergies Past Medical History: Diagnosis Date Abnormal cervical Papanicolaou smear 1999 Varicella zoster Past Surgical History: Procedure Laterality Date COLPOSCOPY 1999 UMBILICAL HERNIA REPAIR 1986 OB History Para Term AB Living 2 2 2 2 SAB IAB Ectopic Multiple Live Births 2 # Outcome Date GA Lbr Yahir/2nd Weight Sex Type Anes PTL Lv 2 Term Vag-Spont GEOVANY 1 Term Vag-Spont GEOVANY Obstetric Comments Pap 06/01/22- Neg, HPV Neg Mammogram 07/02/23- neg ([facility]) ROS General: Denies fevers/chills Eyes: Denies vision changes ENT: Denies neck stiffness, neck mass Endocrine: Denies polydipsia and polyuria Respiratory: Denies shortness of breath Cardiovascular: Denies chest pain and palpitations Gastrointestinal: Denies changes in bowel habits, blood in stool, constipation and diarrhea. Hematology: Denies easy bruising. Women Only: Denies breast masses, skin changes, nipple discharge, abnormal bleeding, pelvic pain and dyspareunia Genitourinary: Denies dysuria, pelvic pain and nocturia Skin: Denies rashes/lesions Neurologic: Denies headaches, dizziness, syncope Psychiatric: Denies hallucinations, suicidal ideas EXAM GENERAL EXAMINATION: Alert, oriented, well developed, well nourished. HEAD: Normocephalic, atraumatic. EYES: RICKY, sclera anicteric. EARS: No obvious hearing deficit. NECK/THYROID: Neck supple no cervical lymphadenopathy no thyromegaly. LYMPH NODES: No axillary, supraclavicular or inguinal adenopathy. SKIN: Warm and dry. No rashes HEART: Regular rate and rhythm. No murmur LUNGS: Clear to auscultation bilaterally. CHEST: Axillary nodes grossly normal. BREASTS: No dominant masses palpable bilaterally, no skin changes, nipple discharge, supra-clavicular or axillary adenopathy ABDOMEN: Soft, nontender, nondistended, no hernia or masses palpable. BACK: No obvious scoliosis/kyphosis. 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 EXTREMITIES No edema. NEUROLOGIC: Alert and oriented. PSYCH: Cooperative with exam. Procedures ICD-10-CM 1. Encounter for gynecological examination with abnormal finding Z01.411 2. Encounter for screening mammogram for malignant neoplasm of breast Z12.31 Bilateral screening mammogram with tomosynthesis 3. BMI 40.0-44.9, adult ([facility]) Z68.41 Advised pt to perform monthly self breast exams. Encouraged calcium and Vitamin D intake. Mammogram due, order sent. Menses regular, monthly, lasting 5 days and tolerable. Will be due for colon cancer screening next year- reviewed colonoscopy vs cologuard. Denies any breast, bowel or bladder issues. She will return in 1 year for annual exam. Entered by Donya Potter LPN acting as scribe for Dr. Leroy Yang. Signature: Donya Potter LPN The documentation recorded by the scribe accurately reflects the service(s) I personally performed and the decisions I made. Signature: Leroy Yang DO Assessment & Plan documented in this encounter [facility] 11-10-2022 Evaluation note Encounter Date Diagnosis Assessment Notes Oct, COVI D-19 (ICD -10 - U07. 1) Discussed symptom management and OTC meds. Declines paxlovid. Feeling improved overall. Discussed symptoms and circumstances at time of possible contact with virus. Discussed recommendations for prevention of spread of virus including nicolás mask in public, frequent hand washing and social distancing. Recommend frequent cleaning of high touch surfaces. Note to be excused from work sent to Board office [employer] Other 07-31-2023 Evaluation note* Encounter Date Diagnosis Assessment Notes Treatment Notes Treatment Clinical Notes Aug, Acute right ankle pain (ICD-10 - M25.571) neg xray Aug, Sprain of right ankle, unspecified ligament, initial encounter (ICD-10 - S93.401A) X-ray without any acute fracture or dislocation. Discussed consistent with moderate sprain to ankle. Continue ice, elevation, ibuprofen or Aleve. Continue to wear brace during the day for support. Avoid strenuous activity, long periods of standing or walking until symptoms have improved. Patient is advised to follow-up with PCP if not gradually improving over the next 10 to 14 days or 6 if acutely worsening. Patient verbalized understanding of treatment plan. Aug, Right foot pain (ICD-10 - M79.671) neg xray [employer] Other 05-09-2023 Evaluation note* Encounter Date Diagnosis Assessment Notes Treatment Notes Treatment Clinical Notes June, Wellness examination (ICD-10 - Z00.00) Discussed health and wellness. Forms completed for insurance as work [employer] [facility] [employer] Other Chief complaint+Reason for visit Narrative* Chief Complaint Wellness procedure Reason for Visit Ganglion of left wri st Skin tag, acquired Wellness examination [facility] Work Phone: Evaluation note* Diagnosis Onset Date Resolution Status Ganglion of left wrist acute Wellness examination acute [facility] Work Phone: Evaluation note* Diagnosis Onset Date Resolution Status Ganglion of left wrist acute Skin tag, acquired acute Wellness examination acute [facility] Work Phone: Evaluation noteNo assessment information available [facility] Work Phone: Evaluation note* Diagnosis Encounter for gynecological examination with abnormal finding- Primary Encounter for screening mammogram for malignant neoplasm of breast BMI 40.0-44.9, adult ([facility]) documented in this encounter [facility] Narrative - Reported* Type Description Date Medical History Family history of stroke Medical History Family history of diabetes melli tus Medical History Abnormal TSH Surgical History HERNIA REPAIR Hospitalization History SEE SURGICAL HX [employer] [facility] [employer] Other Hospital Discharge instructionsAmbulatory Orders* Referral to Orthopedics Time Frame: 07/19/23, Location: None Selected [facility] Work Phone: Summary Purpose Family History No Family History Records Found Relationship Condition Age at Onset Recorded Date/T cristina father Hypertension Unknown Not Specified History of stroke Unknown Relationship Condition Age at Onset Recorded Date/T cristina father Hypertension Unknown mother History of stroke Unknown Advance Directives No Advanced Directives Records Found Advance Directive Response Recorded Date/ Time Advance Directives No September 19 023 10:19am Chief Complaint and Reason for Visit Chief Complaint Wellness Reason for Visit Ganglion of left wri st Wellness examination Chief Complaint Admit Date work paperwork April 28, 2024 8:5 3am Additional Source Comments INFORMATION SOURCE (unrecogn ized section and content) DATE CREATED AUTHOR 06/19/2022 [facility] DATE CREATED AUTHOR AUTHOR'S ORGANIZ ATION 10/01/2022 [facility] DATE CREATED AUTHOR AUTHOR'S ORGANIZ ATION 07/14/2024 [facility] EPIC REASON FOR VISIT (unrecogniz ed section and content) Reason Comments Gynecologic Exam Pt presents for year ly. 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 Care Teams (unrecognized sec tion and content) Team Status: Active Member Role Status Dates Patrizia Darling MD Primary Care Provider Active Team Status: Inactive Member Role Status Dates Patrizia Darling MD Primary Care Provide r, Attending Provider Active Start: April 28, 2024 End: April 28, 2024 Team Status: Active Member Role Status Dates Patrizia Darling MD Primary Care Provide r, Attending Provider Active Start: July 02, 2023 Team Status: Inactive Member Role Status Dates Patrizia Darling MD Primary Care Provide r, Attending Provider Active Start: July 19, 2023 End: July 19, 2023 Team Status: Inactive Member Role Status Dates Patrizia Darling MD Primary Care Provide r, Attending Provider Active Start: July 26, 2023 End: July 26, 2023 [employer] Relationship Specialty Start Date End Date Patrizia Darling MD PCP - General Family Medicine 07/21/23 Goals (unrecognized section and content) Goals may be documented in a n alternate section FOR RECORDS PERTAINING TO PATIENTS WHO ARE OR HAVE BEEN ENROLLED IN A CHEMICAL DEPENDENCY/SUBSTANCEABUSE PROGRAM, SOME INFORMATION MAY BE OMITTED. This clinical summary was aggregated from multiple sources. Caution should be exercised in using it in the provision of clinical care. This summary normalizes information from multiple sources, and as a consequence, information in this document may materially change the coding, format and clinical context of patient data. In addition, data may be omitted in some cases. CLINICAL DECISIONS SHOULD BE BASED ON THE PRIMARY CLINICAL RECORDS. [employer] [facility]. provides no warranty or guarantee of the accuracy or completeness of information in this document.
[2024-09-08 10:19] LABS: Hematocrit 45.0 % (36.0-48.0); Hemoglobin 14.4 g/dL (12.0-16.0); Immature Granulocytes Abs Auto 0.01 10^3/uL (0.00-0.03); Immature Granulocytes Pct Auto 0.2 % (0.0-0.5); Lymphocytes Absolute Auto 2.2 10^3/uL (1.2-3.8); Mean Corpuscular HGB Conc 32.0 g/dL (29.9-35.2); Mean Corpuscular Hemoglobin 29.0 pg (26.7-34.0); Mean Corpuscular Volume 90.7 fL (81.0-99.0); Platelet Count 256 10^3/uL (150-450); Red Blood Count 4.96 10^6/uL (4.20-5.40); White Blood Count 4.7 10^3/uL (4.0-11.0)
[2024-09-08 11:51] LABS: Anion Gap 12.0; Blood Urea Nitrogen 13.0 mg/dL (7.0-18.0); Calcium 9.0 mg/dL (8.5-10.1); Carbon Dioxide 25.4 mmol/L (21.0-32.0); Chloride 107 mmol/L (98-107); Cholesterol 167 mg/dL (<=200); Estimated GFR (African America >60 (>=60 mL/min/1.73m^2); Estimated GFR (Non-African Ame >60 (>=60 mL/min/1.73m^2); Glucose 102 mg/dL (74-106); HDL Cholesterol 45 mg/dL (40-60); Potassium 4.4 mmol/L (3.5-5.1); Sodium 140 mmol/L (136-145); TSH W/ REFLEX FT4 2.270 uIU/mL (0.358-3.740); Triglycerides 77 mg/dL (<=150); VLDL CHOLESTEROL 15.4 mg/dL
== END 2024-09-08 09:27 | disposition home or self-care (01) ==
LOC: LAB 09:26
PROVIDERS: PCP Family Medicine; Visit Provider Family Medicine
DX: Z00.00 Encounter for general adult medical examination without abnormal findings (principal); E66.812 Obesity, class 2; Z68.39 Body mass index [BMI] 39.0-39.9, adult
CPT/HCPCS: 36415; 80048; 80061; 83036; 84443; 85025